=== PATIENT | female | born 2000 | race Caucasian/White ===

== ENCOUNTER 2023-02-13 12:35 | Emergency (ER) | payer OTHER ==
[~2023-02-13] VITALS: Ht 157.5 cm; Wt 61.2 kg
--- NOTE | 2023-02-13 12:53 | NUR ---
seen and examined by
[2023-02-13] MEDS ORDERED: CEPH500T PO (12:54)
[2023-02-13] MEDS ORDERED: SULF1TAB48 PO (12:54)
[2023-02-13] MEDS ORDERED: IBUP-1955 PO (12:54)
[2023-02-13] MEDS ORDERED: LORA10CA PO (12:54)
[2023-02-13] MEDS ORDERED: HYDR-501 PO (12:54)
[2023-02-13] MEDS ORDERED: diphenhydrAMINE 50 MG/1 ML VIAL IV ONE (13:00)
[2023-02-13] MEDS ORDERED: DEXAMETHASONE SOD PHOSPHATE 4 MG INJ IV ONE (13:00)
[2023-02-13] MEDS ORDERED: FAMOTIDINE. 20 MG/2 ML VIAL IV ONE ×2 (13:00→13:01)
[2023-02-13] MEDS ORDERED: IV NORMAL SALINE 500 ML BAG IV ONE (13:00)
[2023-02-13] MEDS ORDERED: DEXAMETHASONE SOD PHOSPHATE 10 MG INJ ONE (13:01)
[2023-02-13] MEDS ORDERED: diphenhydrAMINE 50 MG/1 ML VIAL ONE (13:02)
[2023-02-13] MEDS ORDERED: FAMO20TA8 PO (14:10)
[2023-02-13] MEDS ORDERED: PRED50TA PO (14:10)
[2023-02-13 14:20] VITALS: BP 120/80
--- NOTE | 2023-02-13 14:20 | NUR ---
Patient discharged to home in stable condition. Written and verbal after care instructions given. Patient verbalizes understanding of instructions. Stressed follow up or return to ER for worsening s/s.
[2023-02-13] MEDS ORDERED: EPIN0.3P3 IM (14:21)
== END 2023-02-13 14:21 | disposition home or self-care (01) ==
LOC: ER 12:35
DX: T78.40XA Allergy, unspecified, initial encounter (principal); Z79.899 Other long term (current) drug therapy; Z79.1 Long term (current) use of non-steroidal anti-inflammatories (NSAID); Y92.89 Other specified places as the place of occurrence of the external cause
CPT/HCPCS: 99284; 96374; 96375; 96361; J1100; J1200; J3490; J7040; A4663

== ENCOUNTER 2024-02-10 05:56 | Emergency (ER) | payer OTHER ==
[~2024-02-10] VITALS: Ht 157.5 cm; Wt 5.9 kg
[~2024-02-10 05:56] MED LIST: CEPH500T PO; EPIN0.3P3 IM; FAMO20TA8 PO; HYDR-501 PO; IBUP-1955 PO; LORA10CA PO; PRED50TA PO; SULF1TAB48 PO
[2024-02-10] MEDS ORDERED: IBUP-1957 PO (07:44)
[2024-02-10] MEDS ORDERED: CEPH500C2 PO (07:44)
[2024-02-10] MEDS: predniSONE 50 MG TABLET PO ONE (07:45)
[2024-02-10] MEDS: CEphaleXIN 500 MG CAPSULE PO ONE (07:45)
[2024-02-10] MEDS ORDERED: predniSONE 50 MG TABLET ONE (07:46)
[2024-02-10] MEDS ORDERED: CEphaleXIN 500 MG CAPSULE ONE (07:47)
[2024-02-10 07:54] VITALS: BP 111/70; O2SAT 98
== END 2024-02-10 07:59 | disposition home or self-care (01) ==
LOC: ER 05:58
DX: H65.93 Unspecified nonsuppurative otitis media, bilateral (principal); Z79.899 Other long term (current) drug therapy
CPT/HCPCS: 99283; J7512; A4606; A4663